=== PATIENT | male | born 1975 | race Caucasian/White ===

== ENCOUNTER 2023-08-28 08:59 | Outpatient (REF) | payer OTHER, SELFPAY ==
--- NOTE | ~2023-08-28 | US_ITS ---
EXAMINATION: US ABDOMEN COMPLETE CLINICAL INFORMATION: Epigastric pain. COMPARISON: None available. TECHNIQUE: Real-time imaging of the abdominal viscera. FINDINGS: PANCREAS: The visualized head and body of the pancreas appears unremarkable. Remainder of the pancreas is obscured by bowel gas. ABDOMINAL AORTA: The proximal, mid, and distal segments are normal in caliber. INFERIOR VENA CAVA: Visualized portions are normal. LIVER: Right lobe measures 17.5 cm. The liver contour is normal. Diffuse increased parenchymal echogenicity. No focal hepatic lesion. There is no intrahepatic biliary duct dilatation seen. GALLBLADDER: Normal. The gallbladder is physiologically distended without evidence of stones, sludge, polyps, wall thickening or pericholecystic fluid. COMMON BILE DUCT: Normal in caliber measuring 0.5 cm in diameter. RIGHT KIDNEY: Normal. No hydronephrosis. No renal calculi or focal parenchymal lesions. The kidney measures 12.1 cm in maximum dimension. LEFT KIDNEY: Normal. No hydronephrosis. No renal calculi or focal parenchymal lesions. The kidney measures 12.1 cm in maximum dimension. SPLEEN: Normal. The spleen measures 13.6 cm in maximum dimension. FREE FLUID: None. US/US abdomen complete IMPRESSION: There is generalized increase in hepatic echotexture, consistent with fatty infiltration or hepatocellular disease. Please correlate clinically. No focal hepatic mass or intrahepatic biliary duct dilatation is seen.
== END 2023-08-28 09:00 | disposition home or self-care (01) ==
LOC: HO.HMGCX 08:59
PROVIDERS: PCP Nurse Practitioner Family; Visit Provider Internal Medicine Gastroenterology
DX: R10.13 Epigastric pain (principal)
CPT/HCPCS: 76700

== ENCOUNTER 2023-10-30 06:30 | Day surgery (SDC) | payer OTHER, SELFPAY ==
[2023-10-26 11:30] VITALS: BMI 33.4
--- NOTE | 2023-10-26 13:17 | HO.ANESPROP2 ---
Documented by User: Rosalee Camarillo NP 10/26/23 13:38 HPI - Anesthesia Eval Consult details Narrative: 48yo M for Upper Endoscopy and Colonoscopy Follows [facility] Cardiology. Stable at 06/2023 office visit. CAD with STEMI 03/2023 s/p MANOJ. Needs to continue ASA/Plavix per cardiology. OK to proceed on DAPT per Dr Cullen. [facility] Past Medical History Medical History (Updated 10/26/23 @ 11:20 by Sadie Park RN) Intestinal malrotation Allergic rhinitis Hyperlipidemia HTN (hypertension) GERD (gastroesophageal reflux disease) Myocardial infarction Surgical History Surgical History (Updated 10/26/23 @ 11:20 by Sadie Park RN) Hx of resection of small bowel Hx of knee surgery History of coronary artery stent placement Social History Social History Patient Tobacco Use Status: Former Tobacco user Quit Date: 5 years Use of substances other than those prescribed or required for medical reasons: Yes Substance Use Type Other:: none x 2 days Are you DNR?: No Advance Directives: No Advance Directives Information Provided: Yes Meds Allergies Allergy/AdvReac Type Severity Reaction Status Date / Time Seasonal Allergies Allergy Unknown Verified 10/26/23 11:20 Home Medications Medication Instructions Recorded Confirmed Last Taken Type aspirin 81 mg tablet,delayed 81 mg PO DAILY 10/26/23 10/26/23 10/30/23 History release clopidogrel 75 mg tablet 75 mg PO DAILY 10/26/23 10/26/23 10/30/23 History losartan 25 mg tablet 25 mg PO DAILY 10/26/23 10/26/23 Unknown History metoprolol succinate 25 mg 25 mg PO DAILY 10/26/23 10/26/23 10/30/23 History tablet,extended release 24 hr omeprazole 20 mg capsule,delayed 20 mg PO BID 10/26/23 10/26/23 10/30/23 History release rosuvastatin 40 mg tablet 40 mg PO DAILY 10/26/23 10/26/23 Unknown History Exam Height,Weight and Vital Signs: Height 6 ft Weight 111.584 kg Narrative Narrative: EKG 06/2023 NSR @ 63 ? LAE Inferior infarct (old) ECHO 06/2023 LV size is nml LV wall thickness is nml Overall LV systolic function is nml with EF b/w 55-60% Basal inferior - mildly hypokinetic c/w 03/2023 BiV function and EF and WMA much improved Assessment and Plan Assessment Anesthesia Assessment: Chart Reviewed Documented by User: Delonte Coronel MD 10/30/23 08:08 [facility] Past Medical History Medical History (Updated 10/26/23 @ 11:20 by Sadie Park RN) Intestinal malrotation Allergic rhinitis Hyperlipidemia HTN (hypertension) GERD (gastroesophageal reflux disease) Myocardial infarction Family History Family history of problems with anesthesia: No Surgical History Surgical History (Updated 10/26/23 @ 11:20 by Sadie Park RN) Hx of resection of small bowel Hx of knee surgery History of coronary artery stent placement History of Problems with Anesthesia: No Social History Social History Patient Tobacco Use Status: Former Tobacco user Quit Date: 5 years Use of substances other than those prescribed or required for medical reasons: Yes Substance Use Type Other:: none x 2 days Are you DNR?: No Advance Directives: No Advance Directives Information Provided: Yes Meds Allergies Allergy/AdvReac Type Severity Reaction Status Date / Time Seasonal Allergies Allergy Unknown Verified 10/26/23 11:20 Home Medications Medication Instructions Recorded Confirmed Last Taken Type aspirin 81 mg tablet,delayed 81 mg PO DAILY 10/26/23 10/26/23 10/30/23 History release clopidogrel 75 mg tablet 75 mg PO DAILY 10/26/23 10/26/23 10/30/23 History losartan 25 mg tablet 25 mg PO DAILY 10/26/23 10/26/23 Unknown History metoprolol succinate 25 mg 25 mg PO DAILY 10/26/23 10/26/23 10/30/23 History tablet,extended release 24 hr omeprazole 20 mg capsule,delayed 20 mg PO BID 10/26/23 10/26/23 10/30/23 History release rosuvastatin 40 mg tablet 40 mg PO DAILY 10/26/23 10/26/23 Unknown History Exam Airway Mallampati Class: II TM Dist: <=3cm Neck ROM: Full Loose/Missing/Broken Teeth: Yes and Lower Heart: ok. see above. Lungs: ok Assessment and Plan Assessment Anesthesia Assessment: Anesthesia Plan Discussed Final Anesthetic Review Family History of Problems with Anesthesia: No History of Problems with Anesthesia: No NPO: Yes ASA Class: III Final Preanesthetic Review: No Changes in Pt Med Stat, Meds/Allgs Chart Reviewed, Consent Obtained/Reviewed and Anes Risks/Benef Reviewed Patient Risk: Intermediate Procedure Risk: Intermediate Anesthetic Plan Anesthetic Plan: Agree w/ Assess. and Plan and TIVA Disposition: Standard PACU
[2023-10-30 06:52] VITALS: BMI 32.2
[2023-10-30 06:57] VITALS: BP 128/77; PULSE 67; RESP 18; TEMP 36.4; O2SAT 98; BMI 32.2
[2023-10-30] MEDS: Lactated Ringers 1,000 ML 100 ML IVCONT (07:14)
--- NOTE | 2023-10-30 07:31 | P.HPSUR_ITS ---
Pre-Procedural Eval Section A - 24 Hr Update-Section A only Date of Service: 10/30/23 Section B - Complete if H&P > 30 days Chief Complaint: Encounter for screening for malignant neoplasm of Details of Present Illness: see H&P no changes Relevant Family History (Specify if Yes): No Relevant Social History: None Present Medications: see Short Stay Collaborative assessment Medical History: No relevant PMH History of Previous Operations: No relevant previous surgery Allergies: Allergies Allergy/AdvReac Type Severity Reaction Status Date / Time Seasonal Allergies Allergy Unknown Verified 10/26/23 11:20 Review of Systems Sugical H&P ROS: Negative: Constitution, Cardiovascular, Respiratory, Neurological, Psychiatric, Hem-Onc, Allergic/Immunologic, Gastrointestinal, Genitourinary, Musculoskeletal, Integumentary, Endocrine and Eyes/ Ears/Nose/Throat Exam Surgical H&P Exam: Normal: HEENT, Normal: Heart, Normal: Lungs, Normal: Extremities, Normal: Abdomen, Normal: Skin and Normal: Neurological Plan Diagnosis/Plan: Unchanged I have reviewed the history and physical and performed a pertinent physical examination on my patient. No changes have occurred unless specified. Time Spent With Patient Time: Total time managing care of this patient today ____ minutes.
[2023-10-30 08:35] VITALS: BP 116/67; PULSE 79; RESP 18; TEMP 36.3; O2SAT 98
[2023-10-30 08:50] VITALS: BP 126/75; PULSE 59; RESP 18; O2SAT 98
--- NOTE | 2023-10-30 08:52 | OP_ITS ---
DATE OF SERVICE: 10/30/2023 SURGEON: Mark Cullen MD INDICATIONS: 1. Epigastric pain. 2. Bloating. 3. Colon cancer screening. PREOPERATIVE DIAGNOSIS: POSTOPERATIVE DIAGNOSIS: PROCEDURE PERFORMED: ESTIMATED BLOOD LOSS: COMPLICATIONS: ANESTHESIA: Monitored anesthesia care. ASSISTANTS: SPECIMENS: PROCEDURES PERFORMED: Upper endoscopy with biopsy, colonoscopy to the right colon. DESCRIPTION OF PROCEDURE: A history and physical was performed. The risks and benefits of the procedure were explained to the patient and informed consent was obtained. The patient was placed in the left lateral decubitus position. The Olympus video gastroscope was introduced into the esophagus, stomach, and duodenum. Examination was performed and the scope was removed. He was repositioned for colonoscopy. A digital rectal exam was performed and was found to be normal. The Olympus pediatric video colonoscope was introduced into the rectum and advanced to the right colon, where further advancement was not possible due to looping in the sigmoid despite application of abdominal wall pressure. Examination was performed and the scope was removed. He tolerated the procedure well and was returned to recovery area in stable condition. 80% of the colon was examined. FINDINGS: Upper endoscopy: Esophagus: The esophagus showed an irregular EG junction. This was biopsied. Stomach: The stomach showed no evidence of masses, ulcers, or polyps. Antral biopsies were obtained to evaluate for H pylori. Duodenum: The bulb and 2nd portion were normal. Colonoscopy: The terminal ileum was not examined. The right colon and cecum were examined in limited fashion with only 80% of the right colon being seen. There was some stool limiting the examination that area as well. This was washed and suctioned as best possible. No polyps were identified. The remainder of the colonic mucosa appeared within normal limits. Retroflexed examination showed some small internal hemorrhoids. IMPRESSION: 1. Normal upper endoscopy. 2. Colonoscopy to the right colon, limited, no evidence of colon polyps. RECOMMENDATIONS: 1. Follow up the biopsy results. 2. Repeat colonoscopy in 6 to 12 months for repeat examination and complete viewing of the right colon. MD GAUTAM Mccrary/KRISTEN / [id number]
--- NOTE | 2023-10-30 09:37 | PM.OP ---
Brief Operative Note Date of Service: 10/30/23 Pre-op diagnosis: see H*P Procedure: EGD, colon Surgeon: Mark Cullen MD Anesthesia: MAC Was an Windows Mobile Developer used for this Procedure?: No Estimated blood loss (mL): 2 Pathology: other Condition: stable Disposition: PACU
== END 2023-10-30 09:25 | disposition home or self-care (01) ==
PROVIDERS: PCP Nurse Practitioner Family; Visit Provider Internal Medicine Gastroenterology
PROC: (CPT 45378; principal; 2023-10-30 07:30)
DX: Z12.11 Encounter for screening for malignant neoplasm of colon (principal); R10.13 Epigastric pain; R14.0 Abdominal distension (gaseous); K21.9 Gastro-esophageal reflux disease without esophagitis; I10 Essential (primary) hypertension; G47.33 Obstructive sleep apnea (adult) (pediatric); Z79.899 Other long term (current) drug therapy; Z99.89 Dependence on other enabling machines and devices
CPT/HCPCS: 45378; 43235; 88305; 88313; 88342; J2704

== ENCOUNTER 2024-06-06 09:25 | Day surgery (SDC) | payer OTHER, SELFPAY ==
[2024-06-04 10:58] VITALS: BMI 33.4
--- NOTE | 2024-06-05 10:22 | P.CONAN_ITS ---
HPI - Anesthesia Eval Consult details Narrative: 49yo M for Colonoscopy,possible upper endoscopy CAD with IA/Stent 03/2023 Cardiac optimized for [place], 1 year plavix completed [facility] Past Medical History Medical History (Updated 06/06/24 @ 09:55 by Mana Lange, STACI) RAFAEL (obstructive sleep apnea) Intestinal malrotation Allergic rhinitis Hyperlipidemia HTN (hypertension) GERD (gastroesophageal reflux disease) Myocardial infarction Family History Family history of problems with anesthesia: No Surgical History Surgical History History of esophagogastroduodenoscopy (EGD) H/O colonoscopy Hx of resection of small bowel Hx of knee surgery History of coronary artery stent placement History of Problems with Anesthesia: No Social History Social History (Updated 06/04/24 @ 10:58 by Janett Patel RN) Household Members: Spouse Patient Tobacco Use Status: Former Tobacco user Tobacco use type: Cigarette Use of substances other than those prescribed or required for medical reasons: Yes Substance Use Type Other:: last smoked 3 days ago Are you DNR?: No Advance Directives: No Advance Directives Information Provided: Yes Recently lost weight without trying: No Meds Allergies Allergy/AdvReac Type Severity Reaction Status Date / Time Seasonal Allergies Allergy Unknown Verified 06/06/24 09:33 Home Medications ?Medication ?Instructions ?Recorded ?Confirmed ?Last Taken ?Type aspirin 81 mg tablet,delayed 81 mg PO DAILY 10/26/23 06/06/24 06/06/24 06:00 History release losartan 25 mg tablet 25 mg PO DAILY 10/26/23 06/06/24 Unknown History metoprolol succinate 25 mg 25 mg PO DAILY 10/26/23 06/06/24 06/06/24 06:00 History tablet,extended release 24 hr omeprazole 20 mg capsule,delayed 20 mg PO BID 10/26/23 06/06/24 06/06/24 06:00 History release rosuvastatin 40 mg tablet 40 mg PO DAILY 10/26/23 06/06/24 Unknown History cetirizine 10 mg tablet 10 mg PO DAILY 06/04/24 06/06/24 Unknown History Exam Height,Weight and Vital Signs: Height 6 ft Weight 111.584 kg Narrative Narrative: EKG 06/2023 NSR Possible LAE Inferior infarct (old) ECHO 06/2023 1. LV size is nml 2. LV wall thickness is nml 3. Overall LV sys function is nml with EF 55-60% 4. basal inferior mildly hypokinetic 5. c/w 2022, improved Assessment and Plan Assessment Anesthesia Assessment: Chart Reviewed Final Anesthetic Review Family History of Problems with Anesthesia: No History of Problems with Anesthesia: No
[2024-06-06 09:36] VITALS: BMI 31.6
[2024-06-06 09:42] VITALS: BP 128/73; PULSE 75; RESP 15; TEMP 36.8; O2SAT 96
[2024-06-06] MEDS: Lactated Ringers 1,000 ML 100 ML IVCONT (09:56)
--- NOTE | 2024-06-06 10:06 | P.HPSUR_ITS ---
Pre-Procedural Eval Section A - 24 Hr Update-Section A only Date of Service: 06/06/24 Section B - Complete if H&P > 30 days Chief Complaint: Encounter for screening for malignant neoplasm of Details of Present Illness: colon cancer screening Relevant Family History (Specify if Yes): No Relevant Social History: None Present Medications: see Short Stay Collaborative assessment Medical History: No relevant PMH History of Previous Operations: No relevant previous surgery Allergies: Allergies Allergy/AdvReac Type Severity Reaction Status Date / Time Seasonal Allergies Allergy Unknown Verified 06/06/24 09:33 Review of Systems Sugical H&P ROS: Negative: Constitution, Cardiovascular, Respiratory, Neurological, Psychiatric, Hem-Onc, Allergic/Immunologic, Gastrointestinal, Genitourinary, Musculoskeletal, Integumentary, Endocrine and E yes/Ears/Nose/Throat Exam Surgical H&P Exam: Normal: HEENT, Normal: Heart, Normal: Lungs, Normal: Extremities, Normal: Abdomen, Normal: Skin and Normal: Neurological Plan Diagnosis/Plan: Unchanged I have reviewed the history and physical and performed a pertinent physical examination on my patient. No changes have occurred unless specified. Time Spent With Patient Time: Total time managing care of this patient today ____ minutes.
[2024-06-06 11:06] VITALS: BP 109/57; PULSE 87; RESP 16; TEMP 36.8; O2SAT 94
[2024-06-06 11:21] VITALS: BP 112/71; PULSE 65; RESP 16; O2SAT 100
--- NOTE | 2024-06-06 12:01 | OP_ITS ---
DATE OF SERVICE: 06/06/2024 SURGEON: Mark Cullen MD INDICATIONS: Colon cancer screening and previous incomplete examination. PREOPERATIVE DIAGNOSIS: POSTOPERATIVE DIAGNOSIS: PROCEDURE PERFORMED: Colonoscopy to the cecum. ESTIMATED BLOOD LOSS: COMPLICATIONS: ANESTHESIA: Monitored anesthesia care. ASSISTANTS: SPECIMENS: DESCRIPTION OF PROCEDURE: A history and physical performed. The risks and benefits of the procedure were explained to the patient. Informed consent was obtained. The patient was placed in the left lateral decubitus position. A digital rectal exam was performed and was found to be normal. The Olympus video colonoscope was introduced into the rectum and advanced to the cecum with the assistance of abdominal wall pressure. The cecum was identified by transillumination, palpation, identification of ileocecal valve. Examination was performed. The scope was removed. He tolerated the procedure well and was returned to recovery in stable condition. FINDINGS: The terminal ileum was not examined. The visualized colonic mucosa was normal. The quality of the prep was good. The colon was quite tortuous due to the patient's history of intestinal malrotation and abdominal wall pressure was used to advance the scope. The cecum appeared to be located in the upper abdomen near the liver. A single polyp was identified at 100 cm from the anal verge. This was removed with biopsy forceps and measured less than 5 mm. No other polyps were identified. Retroflexed examination showed small internal hemorrhoids. IMPRESSION: Colon polyp. RECOMMENDATION: Follow up biopsy results. MD GAUTAM Mccrary/MODL / [id number]
== END 2024-06-06 11:52 | disposition home or self-care (01) ==
PROVIDERS: PCP Nurse Practitioner Family; Visit Provider Internal Medicine Gastroenterology
PROC: 0DJD8ZZ Inspection of Lower Intestinal Tract, Via Natural or Artificial Opening Endoscopic (ICD-10-PCS; CPT 45378; principal; 2024-06-06 10:40)
DX: Z12.11 Encounter for screening for malignant neoplasm of colon (principal); D12.3 Benign neoplasm of transverse colon; Q43.3 Congenital malformations of intestinal fixation; K64.8 Other hemorrhoids; R14.0 Abdominal distension (gaseous); R10.13 Epigastric pain; K21.9 Gastro-esophageal reflux disease without esophagitis; I10 Essential (primary) hypertension; E78.5 Hyperlipidemia, unspecified; I25.2 Old myocardial infarction; G47.33 Obstructive sleep apnea (adult) (pediatric); J30.9 Allergic rhinitis, unspecified; Z79.82 Long term (current) use of aspirin; Z79.899 Other long term (current) drug therapy; Z99.89 Dependence on other enabling machines and devices; Z87.891 Personal history of nicotine dependence
CPT/HCPCS: 45380; 88305; J2003; J2704